=== PATIENT | female | born 1965 | race African-American/Black ===

== ENCOUNTER 2021-08-29 18:22 | Inpatient (IN) | payer BC ==
[~2021-08-29] VITALS: Ht 154.9 cm; Wt 93.4 kg
[2021-08-29 21:02] LABS: BASOPHILS % 0.9 % (0.0-2.0); EOSINOPHILS % 1.4 % (0.0-5.0); HEMATOCRIT. 39.3 % (36.0-48.0); HEMOGLOBIN. 12.6 g/dL (12.0-16.0); LYMPHOCYTES % 23.8 % (20.0-50.0); MEAN CORPUSCULAR HEMOGLOBIN 25.2 pg (28.0-32.0); MEAN CORPUSCULAR VOLUME 78.7 fL (81.0-99.0); MEAN PLATELET VOLUME 9.4 fl (7.4-10.4); MONOCYTES % 7.7 % (2.0-8.0); NEUTROPHILS % 66.2 % (40.0-76.0); PLATELET 264 x1000/uL (130-400); RED BLOOD CELL COUNT 4.99 mill/uL (4.2-5.4); RED CELL DISTRIBUTION WIDTH 15.2 % (11.6-14.6)
[2021-08-29 21:11] LABS: CHLORIDE 108 mEq/L (98-107)
[2021-08-29] MEDS ORDERED: ONDANSETRON HCL 4MG/2ML INJ IV PRN (22:15)
[2021-08-29] MEDS ORDERED: DOCUSATE SODIUM 100MG CAPSULE PO PRN (22:15)
[2021-08-29] MEDS ORDERED: IPRATROPIUM/ALBUTEROL 0.5-3(2.5)MG/3ML NEB NEB PRN (22:15)
[2021-08-29] MEDS ORDERED: NA PHOS,M-B/NA PHOS,DI-BA ENEMA 118ML PR PRN (22:15)
[2021-08-29] MEDS ORDERED: MAGNESIUM/ALUMINUM HYDROXIDE/SIMETHICONE 30ML UDC PO PRN (22:15)
[2021-08-29] MEDS ORDERED: ENOXAPARIN 40MG/0.4ML SYR SUBCUT SCH (22:15)
[2021-08-29] MEDS ORDERED: KETOROLAC 15MG/ML VIAL IV PRN (22:15)
[2021-08-29] MEDS ORDERED: GUAIFENESIN 200MG/10ML SUGAR FREE UDC PO PRN (22:15)
[2021-08-29] MEDS ORDERED: ZOLPIDEM TARTRATE 5MG TABLET PO PRN (22:15)
[2021-08-29] MEDS ORDERED: CLONIDINE 0.1MG TABLET PO PRN (22:15)
[2021-08-29] MEDS ORDERED: NITROGLYCERIN 0.4MG TABLET SL SL PRN (22:15)
[2021-08-29] MEDS ORDERED: ACETAMINOPHEN 325MG TABLET PO PRN ×2 (22:15)
[2021-08-29] MEDS: ENOXAPARIN 30MG/0.3ML SYR SUBCUT SCH (23:05)
[2021-08-29 23:55] VITALS: BP 120/68
[2021-08-30 00:10] LABS: T4 FREE 0.93 ng/dL (0.76-1.46)
[2021-08-30 03:56] LABS: *AMPHETAMINES SCREEN URINE NEGATIVE (NEGATIVE); *BARBITURATES SCREEN URINE NEGATIVE (NEGATIVE); *BENZODIAZEPINES SCREEN URINE NEGATIVE (NEGATIVE); *COCAINE SCREEN URINE NEGATIVE (NEGATIVE); CANNABINOID URINE SCREEN NEGATIVE (NEGATIVE); METHADONE URINE SCREEN NEGATIVE (NEGATIVE); OPIATES URINE SCREEN NEGATIVE (NEGATIVE); PHENCYCLIDINE URINE SCREEN NEGATIVE (NEGATIVE)
[2021-08-30 04:00] VITALS: BP 118/73
[2021-08-30 06:19] LABS: BASOPHILS % 0.9 % (0.0-2.0); EOSINOPHILS % 2.1 % (0.0-5.0); HEMATOCRIT. 39.7 % (36.0-48.0); HEMOGLOBIN. 12.8 g/dL (12.0-16.0); LYMPHOCYTES % 28.9 % (20.0-50.0); MEAN CORPUSCULAR HEMOGLOBIN 25.5 pg (28.0-32.0); MEAN CORPUSCULAR VOLUME 78.6 fL (81.0-99.0); MEAN PLATELET VOLUME 9.4 fl (7.4-10.4); MONOCYTES % 8.9 % (2.0-8.0); NEUTROPHILS % 59.2 % (40.0-76.0); PLATELET 232 x1000/uL (130-400); RED BLOOD CELL COUNT 5.05 mill/uL (4.2-5.4); RED CELL DISTRIBUTION WIDTH 14.8 % (11.6-14.6)
[2021-08-30 06:44] LABS: CHLORIDE 109 mEq/L (98-107)
[2021-08-30 06:51] LABS: CREATINE KINASE 90 IU/L (26-192); CREATINE KINASE MB FRACTION < 1.0 ng/mL (0.5-3.6)
[2021-08-30 06:53] LABS: PHOSPHORUS 3.5 mg/dL (2.5-4.9)
[2021-08-30 08:00] VITALS: BP 121/65
[2021-08-30] MEDS: FAMOTIDINE 20MG TABLET PO SCH ×2 (08:41→21:09)
[2021-08-30] MEDS: ASPIRIN 325MG EC TABLET PO SCH (08:41)
[2021-08-30] MEDS: ENOXAPARIN 30MG/0.3ML SYR SUBCUT SCH ×2 (08:41→21:09)
[2021-08-30 12:00] VITALS: BP_SYST 100; BP_SYST 102; BP_SYST 115; BP_DIAS 49; BP_DIAS 50; BP_DIAS 68
[2021-08-30 16:00] VITALS: BP 109/59
[2021-08-30 20:00] VITALS: BP 132/75
[2021-08-31] VITALS: BP 119/59
[2021-08-31 03:57] VITALS: BP 111/66
[2021-08-31 08:00] VITALS: BP 126/68
[2021-08-31] MEDS: ENOXAPARIN 30MG/0.3ML SYR SUBCUT SCH (08:30)
[2021-08-31] MEDS: FAMOTIDINE 20MG TABLET PO SCH (08:30)
[2021-08-31] MEDS: ASPIRIN 325MG EC TABLET PO SCH (08:30)
[2021-08-31 12:25] VITALS: BP_SYST 116; BP_SYST 128; BP_SYST 142; BP_DIAS 72; BP_DIAS 73; BP_DIAS 78
[2021-08-31 15:07] VITALS: BP 120/70
[2021-08-31 15:11] VITALS: BP 120/70
== END 2021-08-31 18:00 | disposition home or self-care (01) | DRG 74 ==
LOC: ER 18:22 → 8WST 21:57 → EDBEDREQTM 22:00 → EDBEDREQ 22:00 → SUPCPDRO 22:04 → ENRESERV 22:30
PROVIDERS: ADMIT Internal Medicine; ATTEND Internal Medicine
DX: G90.8 Other disorders of autonomic nervous system (principal); E66.9 Obesity, unspecified; W18.39XA Other fall on same level, initial encounter; Y93.89 Activity, other specified; Y92.098 Other place in other non-institutional residence as the place of occurrence of the external cause; Y99.8 Other external cause status; Z68.39 Body mass index [BMI] 39.0-39.9, adult; D72.829 Elevated white blood cell count, unspecified
CPT/HCPCS: 36415; 71045; 80053; 80061; 80305; 82550; 82553; 82607; 82746; 83036; 83540; 83550; 83735; 83880; 84100; 84439; 84443; 84484; 85025; 93306; 93970; 99291; J1650

== ENCOUNTER 2024-05-12 11:27 | Emergency (ER) | payer BC ==
[~2024-05-12] VITALS: Ht 154.9 cm; Wt 78.0 kg
[2024-05-12 11:33] VITALS: PULSE 117; O2SAT 98
[2024-05-12 11:34] VITALS: BP 127/79; RESP 14; TEMP 37.1; O2SAT 98
[2024-05-12] MEDS: ONDANSETRON HCL 4MG/2ML INJ IV ONE (12:22)
[2024-05-12] MEDS: SODIUM CHLORIDE 0.9% 1,000 ML IV ONE (12:22)
[2024-05-12 12:33] LABS: BASOPHILS % 0.8 % (0.0-2.0); EOSINOPHILS % 0.3 % (0.0-5.0); HEMATOCRIT. 47.6 % (36.0-48.0); HEMOGLOBIN. 15.5 g/dL (12.0-16.0); LYMPHOCYTES % 16.2 % (20.0-50.0); MEAN CORPUSCULAR HEMOGLOBIN 26.9 pg (28.0-32.0); MEAN CORPUSCULAR HGB CONC 32.5 g/dL (31.0-37.0); MEAN CORPUSCULAR VOLUME 82.6 fL (81.0-99.0); MEAN PLATELET VOLUME 9.5 fl (7.4-10.4); NEUTROPHILS % 77.7 % (40.0-76.0); PLATELET 271 x1000/uL (130-400); RED BLOOD CELL COUNT 5.76 mill/uL (4.2-5.4); RED CELL DISTRIBUTION WIDTH 14.3 % (11.6-14.6); WHITE BLOOD COUNT 8.1 x1000/uL (4.5-11.0)
[2024-05-12 12:42] LABS: CHLORIDE 101 mEq/L (98-107); POTASSIUM 4.7 mEq/L (3.5-5.1); SODIUM 137 mEq/L (136-145)
[2024-05-12 12:43] LABS: CALCIUM 9.7 mg/dL (8.7-10.4); CARBON DIOXIDE 25 mEq/L (21-32)
[2024-05-12 12:48] LABS: CREATININE 0.8 mg/dL (0.6-1.0); GLUCOSE 86 mg/dL (70-105); UREA NITROGEN BLOOD 9 mg/dL (9-23)
[2024-05-12 13:14] LABS: TROPONIN I HIGH SENSITIVITY < 4 ng/L (3.0-34)
[2024-05-12 14:58] LABS: CLARITY URINE CLEAR (CLEAR); COLOR URINE YELLOW (YELLOW); GLUCOSE URINE NEGATIVE (NEGATIVE); KETONES URINE 1+ (NEGATIVE); LEUKOCYTE ESTERASE URINE NEGATIVE (NEGATIVE); NITRITE URINE NEGATIVE (NEGATIVE); OCCULT BLOOD URINE NEGATIVE (NEGATIVE); PH URINE 6.5 (4.5-8.0); PROTEIN URINE NEGATIVE (NEGATIVE); SPECIFIC GRAVITY URINE 1.015 (1.005-1.030); UROBILINOGEN URINE 0.2 E.U./dL (0.2-1.0)
[2024-05-12] MEDS: KETOROLAC 15MG/ML VIAL IV ONE (15:27)
== END 2024-05-12 16:22 | disposition home or self-care (01) ==
LOC: ER 11:27
DX: R11.2 Nausea with vomiting, unspecified (principal); R51.9 Headache, unspecified
CPT/HCPCS: 80048; 81003; 85025; 84484; 36415; 71045; 70450; 93005; 96361; 96374; 96375; 99285; J1885; J2405; J7030; Z7610